=== PATIENT | male | born 1995 | race Caucasian/White ===

== ENCOUNTER 2017-11-30 08:55 | Emergency (ER) | payer MEDICAID ==
[2017-11-30] MEDS: DIPHTH/TET/ACEL PERTUSS (ADULT) 0.5 ML VIAL IM* (09:17)
== END 2017-11-30 10:11 | disposition home or self-care (01) ==
LOC: FTE 08:55
DX: S01.01XA Laceration without foreign body of scalp, initial encounter (principal); Y04.2XXA Assault by strike against or bumped into by another person, initial encounter; Z23 Encounter for immunization
CPT/HCPCS: 90471; 90715; 99283-25